=== PATIENT | male | born 1975 | race African-American/Black ===

== ENCOUNTER → 2024-02-01 08:41 | Outpatient (CLI) | payer OTHER, SELFPAY ==
--- NOTE | 2024-02-01 08:45 | DI.MRI.S_ITS ---
PROCEDURE: MR KNEE RT WO CON INDICATIONS: right knee pain swelling TECHNIQUE: Noncontrast sagittal PD fast spin echo and T2 fast spin echo with fat saturation, sagittal 3-D FLASH with fat saturation; coronal T1 spin echo and PD fast spin echo with fat saturation, and axial PD fast spin echo with fat saturation through the knee. COMPARISON: None. FINDINGS: Image quality: Somewhat limited evaluation given patient motion Menisci: The medial and lateral menisci demonstrate normal morphology and internal signal. The meniscal root ligaments appear intact. Cruciate ligaments: The anterior and posterior cruciate ligaments appear intact. Medial structures: The medial collateral ligament appears intact. The posterior oblique ligament, semimembranosus tendon insertions, oblique popliteal ligament, and meniscocapsular junction appear intact. Visualized portions of the pes anserinus tendons appear normal. No abnormal bursal fluid. Lateral structures: The lateral collateral ligament, long and short heads of the biceps femoris tendon appear intact. The popliteus tendon appears normal; the popliteofibular ligament appears intact. The posterosuperior and anteroinferior popliteomeniscal fascicles appear intact. The arcuate and fabellofibular ligaments appear intact, on either side of the lateral inferior geniculate artery. Iliotibial band appears normal. Anterior structures: The quadriceps tendon is intact. Mild tendinosis of the distal patellar tendon. Superolateral Hoffa's fat pad edema, raising concern for patellar maltracking. The patellofemoral ligaments are intact. Bones and cartilage: The cartilage of the patella is well maintained. Mild chondral thinning of the with button osteophyte of the medial trochlea. Mild chondral irregularity of the central trochlea. The cartilage of the lateral trochlea is well-maintained. The cartilage of the medial compartment is well maintained. In the lateral compartment, there is a small button osteophyte in the nonweightbearing portion of the femoral condyle. The cartilage of the lateral femoral condyle is unremarkable. There is multi focal high grade chondral irregularity and fissuring of the lateral tibial plateau with associated mild subchondral marrow edema. No acute fracture. Joint space: Small knee effusion. Partially ruptured, small popliteal cyst. Mild tendinosis of the distal semimembranosus tendon. No intra-articular body. IMPRESSION: 1. Findings suggestive of patellar maltracking. 2. Mild chondrosis of the patellofemoral compartment. 3. Mild chondrosis of the lateral compartment with associated lateral tibial plateau marrow edema, degenerative. 4. Partially ruptured, small popliteal cyst. Dictated by: Lillian Spencer M.D. on 02/01/2024 at 18:47 Approved by: Lillian Spencer M.D. on 02/01/2024 at 18:56
== END ==
PROVIDERS: PCP Preventive Medicine Aerospace Medicine; Referring Provider Preventive Medicine Aerospace Medicine; Visit Provider Preventive Medicine Aerospace Medicine
DX: S89.91XA Unspecified injury of right lower leg, initial encounter (principal); M94.261 Chondromalacia, right knee; S86.811A Strain of other muscle(s) and tendon(s) at lower leg level, right leg, initial encounter; M25.461 Effusion, right knee; M79.4 Hypertrophy of (infrapatellar) fat pad; X58.XXXA Exposure to other specified factors, initial encounter
CPT/HCPCS: 73721

== ENCOUNTER → 2024-12-22 15:58 | Outpatient (CLI) | payer OTHER, SELFPAY ==
--- NOTE | 2024-12-22 16:01 | DI.MRI.S_ITS ---
PROCEDURE: MR LUMBAR SPINE WO CON INDICATIONS: Low back pain TECHNIQUE: Noncontrast sagittal T1 spin echo and T2 fast echo, sagittal STIR, and T2 fast spin echo through the lumbar spine. In cases with scoliosis, additional coronal T2 fast spin echo may be performed. COMPARISON: None. FINDINGS: Image quality: Diagnostic Alignment and Curvature: No spondylolisthesis Bone Marrow: No acute fracture. Disc desiccation at L3-L4 and L4-L5. Spinal Cord: Terminates in expected position. Paraspinous Soft Tissues: No paravertebral masses or abscess T12-L1: No stenosis L1-L2: Small diffuse disc bulge. Mild facet arthropathy. No stenosis. L2-L3: Small diffuse disc bulge. Ligamentum hypertrophy. Mild facet arthropathy. Mild central narrowing. Mild bilateral neural foraminal narrowing. L3-L4: Central protrusion and moderate diffuse disc bulge. Ligamentum hypertrophy. Moderate facet arthropathy. Moderate to severe central narrowing. Moderate bilateral neural foraminal narrowing. L4-L5: Ligamentum hypertrophy. Moderate disc bulge and facet arthropathy bilaterally. Moderate central narrowing affecting both subarticular recesses. Moderate left and right neural foraminal narrowing. L5-S1: Moderate facet arthropathy. Small central protrusion. Small diffuse disc bulge. Proi-[id number] bilateral neural foraminal narrowing. IMPRESSION: Overall moderate level of spondylosis described above, with notably higher grade stenosis at L3-L4 due to disc disease, facet arthropathy, and ligamentum hypertrophy. No acute fracture Dictated by: Rickie Gilmore M.D. on 12/23/2024 at 9:40 Approved by: Rickie Gilmore M.D. on 12/23/2024 at 9:44
== END ==
LOC: MRI 15:59
PROVIDERS: PCP Preventive Medicine Aerospace Medicine; Referring Provider Student in an Organized Health Care Education/Training Program; Visit Provider Student in an Organized Health Care Education/Training Program
DX: M54.50 Low back pain, unspecified (principal); M51.369 Other intervertebral disc degeneration, lumbar region without mention of lumbar back pain or lower extremity pain; M48.061 Spinal stenosis, lumbar region without neurogenic claudication; M47.816 Spondylosis without myelopathy or radiculopathy, lumbar region; M46.06 Spinal enthesopathy, lumbar region; M46.07 Spinal enthesopathy, lumbosacral region; M51.379 Other intervertebral disc degeneration, lumbosacral region without mention of lumbar back pain or lower extremity pain; M48.07 Spinal stenosis, lumbosacral region; M47.817 Spondylosis without myelopathy or radiculopathy, lumbosacral region
CPT/HCPCS: 72148